=== PATIENT | female | born 1995 | race Two or more races ===

== ENCOUNTER → 2020-02-07 | Outpatient (CLI) | payer SELFPAY ==
[~2020-02-07] MED LIST: OFLO.3OTSO AD
[2020-03-14 09:09] LABS: SOURCE: CERVIX; TEST ORDERED: PAP LIQ-BASED
== END ==
LOC: LAB UCHC 14:30 → LAB SHORT 14:30
PROVIDERS: Registered Nurse Community Health
DX: Z12.4 Encounter for screening for malignant neoplasm of cervix (principal)
CPT/HCPCS: G0123

== ENCOUNTER → 2020-03-21 | Outpatient (CLI) | payer OTHER ==
[2020-03-21 13:19] LABS: BASOPHILS ABSOLUTE AUTO 0.03 K/mm3 (0.00-0.23); BASOPHILS PERCENT AUTO 0 % (0-2); EOSINOPHILS ABSOLUTE AUTO 0.05 K/mm3 (0.00-0.68); EOSINOPHILS PERCENT AUTO 1 % (0-6); Hematocrit 40.6 % (33.0-51.0); IMMATURE GRAN ABSOLUTE AUTO 0.02 K/mm3 (0.00-0.10); IMMATURE GRAN PERCENT AUTO 0 % (0-1); LYMPHOCYTES ABSOLUTE AUTO 1.89 K/mm3 (0.84-5.20); LYMPHOCYTES PERCENT AUTO 28 % (21-46); MONOCYTES ABSOLUTE AUTO 0.74 K/mm3 (0.16-1.47); MONOCYTES PERCENT AUTO 11 % (4-13); Mean Corpuscular HGB 28.6 pg (26.0-34.0); Mean Corpuscular Volume 89 fL (80-100); Mean Platelet Volume 11.2 fL (9.1-12.4); NEUTROPHILS PERCENT AUTO 60 % (41-73); Platelet Count 227 K/mm3 (150-400); RDW Coefficient Variation 12.8 % (11.7-14.2); RDW Standard Deviation 41.7 fL (35.1-46.3); Red Blood Cell Count 4.55 M/mm3 (3.80-5.20); White Blood Cell Count 6.83 K/mm3 (4.00-11.30)
[2020-03-22 07:09] LABS: HBSAG SCREEN Negative (Negative); HIV SCREEN 4TH GENERATION WRFX Non Reactive (Non Reactive)
== END ==
LOC: LAB 12:27 → LAB SHORT 12:27
PROVIDERS: Registered Nurse Community Health
DX: Z34.01 Encounter for supervision of normal first pregnancy, first trimester (principal)
CPT/HCPCS: 80055; 84443; 87389

== ENCOUNTER → 2020-04-17 | Outpatient (CLI) | payer OTHER ==
[2020-04-17 17:42] LABS: Bilirubin, Urine Neg (Neg); Blood, Urine 1+ (Neg); Glucose Qualitative, Urine 1+ (Neg); Ketones, Urine 1+ (Neg); Leukocyte Esterase, Urine Neg (Neg); Nitrite, Urine Neg (Neg); Protein, Urine 1+ (Neg); Urobilinogen, Urine NORM (Normal)
[2020-04-17 18:22] LABS: Appearance, Urine Cloudy (Clear); Color, Urine Yellow (P-Yellow)
[2020-04-17 18:23] LABS: Amorphous Heavy (0-Heavy); Bacteria Few /hpf; Red Blood Cells, Urine 0-2 /hpf (0-2); Squamous Epithelial Cells Few /hpf (Few); White Blood Cells, Urine 0-2 /hpf (0-5)
== END ==
LOC: LAB SHORT 15:33 → LAB 15:33
PROVIDERS: Registered Nurse Community Health
DX: Z34.01 Encounter for supervision of normal first pregnancy, first trimester (principal)
CPT/HCPCS: 81001; 87086

== ENCOUNTER → 2020-05-07 | Outpatient (CLI) | payer OTHER | END | disposition home or self-care (01) | LOC: LAB 17:56 → LAB SHORT 17:56 | DX: N39.0 Urinary tract infection, site not specified (principal) | CPT/HCPCS: 87086 ==

== ENCOUNTER → 2020-05-15 | Outpatient (CLI) | payer OTHER ==
[2020-05-16 21:09] LABS: CHLAMYDIA TRACHOMATIS, NAA Negative (Negative); NEISSERIA GONORRHOEAE, NAA Negative (Negative)
== END ==
LOC: LAB UCHC 15:26 → LAB SHORT 15:26
PROVIDERS: Registered Nurse Community Health
DX: Z34.01 Encounter for supervision of normal first pregnancy, first trimester (principal)
CPT/HCPCS: 87491; 87591

== ENCOUNTER → 2020-05-20 | Outpatient (CLI) | payer OTHER | END | disposition home or self-care (01) | LOC: LAB SHORT 12:00 → LAB 12:00 | DX: N39.0 Urinary tract infection, site not specified (principal) | CPT/HCPCS: 87086 ==

== ENCOUNTER → 2020-10-10 | Outpatient (CLI) | payer OTHER ==
[~2020-10-10] MED LIST changes: +BUSP5 PO; +IBUP800 PO; +LABE100 PO; +LABE200 PO; +PRENATAL TABLE1 EAC2 PO
[2020-10-10 10:26] LABS: Creatinine Urine 71.2 mg/dL (27.00-270.00); Protein, Urine Quantitative 10.3 mg/dL (0.0-11.9)
== END ==
LOC: LAB 07:27 → LAB SHORT 07:27
PROVIDERS: Registered Nurse Community Health
DX: O13.9 Gestational [pregnancy-induced] hypertension without significant proteinuria, unspecified trimester (principal)
CPT/HCPCS: 81050; 82570; 84156

== ENCOUNTER → 2020-10-12 | Outpatient (CLI) | payer OTHER | LOC: LAB UCHC 15:28 → LAB SHORT 15:28 | DX: Z34.01 Encounter for supervision of normal first pregnancy, first trimester (principal) | CPT/HCPCS: 87081; 87150 ==

== ENCOUNTER → 2020-10-18 | Outpatient (CLI) | payer OTHER ==
[2020-10-18 11:08] LABS: Protein, Urine Quantitative 14.4 mg/dL (0.0-11.9)
[2020-10-18 11:53] LABS: Creatinine Urine 83.9 mg/dL (27.00-270.00)
== END ==
LOC: LAB SHORT 07:46 → LAB 07:46
PROVIDERS: Registered Nurse Community Health
DX: O13.9 Gestational [pregnancy-induced] hypertension without significant proteinuria, unspecified trimester (principal)
CPT/HCPCS: 82575; 84156

== ENCOUNTER 2020-10-31 20:27 | Inpatient (IN) | payer OTHER ==
[~2020-10-31] VITALS: Ht 160 cm; Wt 84.5 kg
[~2020-10-31 20:27] MED LIST changes: -BUSP5 PO; -IBUP800 PO; -LABE100 PO; -LABE200 PO; -PRENATAL TABLE1 EAC2 PO
[2020-10-31 21:23] LABS: BASOPHILS ABSOLUTE AUTO 0.02 K/mm3 (0.00-0.23); BASOPHILS PERCENT AUTO 0 % (0-2); EOSINOPHILS ABSOLUTE AUTO 0.03 K/mm3 (0.00-0.68); EOSINOPHILS PERCENT AUTO 0 % (0-6); Hematocrit 32.1 % (33.0-51.0); Hemoglobin 9.9 g/dL (11.5-16.0); IMMATURE GRAN ABSOLUTE AUTO 0.06 K/mm3 (0.00-0.10); IMMATURE GRAN PERCENT AUTO 1 % (0-1); LYMPHOCYTES ABSOLUTE AUTO 1.88 K/mm3 (0.84-5.20); LYMPHOCYTES PERCENT AUTO 25 % (21-46); MONOCYTES ABSOLUTE AUTO 0.65 K/mm3 (0.16-1.47); MONOCYTES PERCENT AUTO 9 % (4-13); Mean Corpuscular HGB 26.1 pg (26.0-34.0); Mean Corpuscular HGB Conc 30.8 g/dL (31.5-36.5); Mean Corpuscular Volume 85 fL (80-100); NEUTROPHILS ABSOLUTE AUTO 4.76 K/mm3 (1.96-9.15); NEUTROPHILS PERCENT AUTO 64 % (41-73); Platelet Count 121 K/mm3 (150-400); RDW Coefficient Variation 13.7 % (11.7-14.2); RDW Standard Deviation 42.5 fL (35.1-46.3); Red Blood Cell Count 3.79 M/mm3 (3.80-5.20)
[2020-10-31] MEDS ORDERED: PRENATAL TABLE1 EAC2 PO (21:29)
[2020-10-31] MEDS ORDERED: LABE200 PO (21:29)
[2020-10-31] MEDS ORDERED: BUSP5 PO (21:30)
[2020-11-01 00:28] LABS: SARS-Cov-2 (COVID-19) PCR, MMC Negative (NEGATIVE)
[2020-11-01 00:29] LABS: Influenza A, PCR Negative (NEGATIVE); Influenza B, PCR Negative (NEGATIVE); Resp Syncytial Virus, PCR Negative (NEGATIVE)
--- NOTE | 2020-11-02 13:30 | NUR ---
assumed pt care. pt in bed brf, assistance given. pt denies anything for pain at this time.
--- NOTE | 2020-11-02 19:15 | NUR ---
BESIDE REPORT TO ZARA PHAM.
[2020-11-03 05:47] LABS: BASOPHILS ABSOLUTE AUTO 0.04 K/mm3 (0.00-0.23); BASOPHILS PERCENT AUTO 0 % (0-2); EOSINOPHILS ABSOLUTE AUTO 0.04 K/mm3 (0.00-0.68); EOSINOPHILS PERCENT AUTO 0 % (0-6); Hematocrit 28.7 % (33.0-51.0); Hemoglobin 8.9 g/dL (11.5-16.0); IMMATURE GRAN ABSOLUTE AUTO 0.13 K/mm3 (0.00-0.10); IMMATURE GRAN PERCENT AUTO 1 % (0-1); LYMPHOCYTES ABSOLUTE AUTO 2.07 K/mm3 (0.84-5.20); LYMPHOCYTES PERCENT AUTO 16 % (21-46); MONOCYTES PERCENT AUTO 7 % (4-13); Mean Corpuscular HGB 26.7 pg (26.0-34.0); Mean Corpuscular Volume 86 fL (80-100); NEUTROPHILS ABSOLUTE AUTO 9.54 K/mm3 (1.96-9.15); NEUTROPHILS PERCENT AUTO 75 % (41-73); Platelet Count 104 K/mm3 (150-400); RDW Coefficient Variation 14.2 % (11.7-14.2); Red Blood Cell Count 3.33 M/mm3 (3.80-5.20); White Blood Cell Count 12.72 K/mm3 (4.00-11.30)
[2020-11-03 05:50] LABS: Mean Platelet Volume 13.6 fL (9.1-12.4)
[2020-11-03] MEDS ORDERED: IBUP800 PO (11:58)
[2020-11-03] MEDS ORDERED: LABE100 PO (18:22)
--- NOTE | 2020-11-03 19:17 | NUR ---
Printed d/c instructions and teaching reviewed w/pt. Questions answered to her satisfaction. Reiterated to patient about when to take pain medications next and to take labetalol this evening. Verbalized understanding. No acute changes t/o shift. ID bands matched w/nb. Pt d/c'd home ambulatory to care of SO.
== END 2020-11-03 19:15 | disposition home or self-care (01) | DRG 807 ==
LOC: OBS 20:27 → BC 20:28 → OBS 20:37 → BC 20:38
PROVIDERS: ADMIT Registered Nurse Community Health
PROC: 3E0P7VZ Introduction of Hormone into Female Reproductive, Via Natural or Artificial Opening (ICD-10-PCS; 2020-10-31)
PROC: 3E033VJ Introduction of Other Hormone into Peripheral Vein, Percutaneous Approach (ICD-10-PCS; 2020-11-01)
PROC: 10907ZC Drainage of Amniotic Fluid, Therapeutic from Products of Conception, Via Natural or Artificial Opening (ICD-10-PCS; 2020-11-01)
PROC: 00HU33Z Insertion of Infusion Device into Spinal Canal, Percutaneous Approach (ICD-10-PCS; 2020-11-01)
PROC: 3E0R3BZ Introduction of Anesthetic Agent into Spinal Canal, Percutaneous Approach (ICD-10-PCS; 2020-11-01)
PROC: 10E0XZZ Delivery of Products of Conception, External Approach (ICD-10-PCS; principal; 2020-11-02)
PROC: 0KQM0ZZ Repair Perineum Muscle, Open Approach (ICD-10-PCS; 2020-11-02)
DX: O13.4 Gestational [pregnancy-induced] hypertension without significant proteinuria, complicating childbirth (principal); Z37.0 Single live birth; O70.1 Second degree perineal laceration during delivery; Z3A.37 37 weeks gestation of pregnancy; Z20.828 Contact with and (suspected) exposure to other viral communicable diseases; O77.0 Labor and delivery complicated by meconium in amniotic fluid
CPT/HCPCS: 0241U; 36415; 51702; 85025; 86850; 86900; 86901; A9270; J1885; J2001; J2210; J2405; J2590; J3010; J7120